=== PATIENT | male | born 1985 | race Caucasian/White ===

== ENCOUNTER → 2018-09-29 08:25 | Outpatient (CLI) | payer MEDICAID, SELFPAY ==
[2018-09-29 07:58] VITALS: BMI 26.2
[2018-09-29 12:25] LABS: Absolute Lymphocyte Count 1.69 X10^3/uL (0.83-4.51); Basophil# 0.09 X10^3/uL; Basophil% 1.3 % (0-1); Eosinophil# 0.24 X10^3/uL; Eosinophils% 3.5 % (0-5); Hematocrit 46.8 % (40-54); Hemoglobin 15.9 g/dL (13.0-16.5); Lymphocyte # 1.69 X10^3/ul (4.0); Mean Corpuscular Hgb 30.6 pg (27.0-32.0); Mean Platelet Vol. 10.4 fl (6.2-12.0); Monocyte# 0.75 X10^3/uL; Monocyte% 11.1 % (0-10); NRBC Flagged by Analyzer 0 % (0-5); Neutrophil # 3.98 X10^3/uL (2.7-7.7); Neutrophil % 58.8 % (47-70); Platelet Count 261 K/mm3 (150-450); RBC Distribution Width CV 12.4 % (11.6-14.6); RBC Distribution Width SD 40.6 fl (35.1-43.9); White Blood Count 6.8 K/mm3 (4.4-11.0)
[2018-09-29 12:38] LABS: AST(SGOT) 13 U/L (15-37); Alanine Aminotransfer ALT/SGPT 24 U/L (16-61); Albumin, Serum 3.8 g/dL (3.2-5.0); Alkaline Phosphatase 135 U/L (45-117); Anion Gap 5 (5-15); BUN 16 mg/dL (7-18); BUN/Creat Ratio 18.9 RATIO (10-20); Calcium,Total 9.2 mg/dL (8.5-10.1); Chloride 102 mmol/L (98-107); Cholesterol 136 mg/dL (200); Creatinine, Serum 0.85 mg/dL (0.70-1.30); EST Glomerular Filtration Rate 111 mL/min (>60); Est Glom Filt Rate - Afr Amer 135 mL/min (>60); Globulin 3.8 g/dL (2.2-4.2); Glucose 294 mg/dL (74-106); High Density Lipoprotein 58 mg/dL; Potassium 4.5 mmol/L (3.5-5.1); Protein, Total 7.6 g/dL (6.4-8.2); Sodium Level 135 mmol/L (136-145); Triglycerides 80 mg/dL; Very Low Density Lipoprotein 16 mg/dL (5-40)
[2018-09-29 12:51] LABS: Microalbumin,Random Urine 86.9 mg/L (NO RANGE EST.); Microalbumin:Creatinine Ratio 156.9 mg/g CRE (<30 mg/g CRE)
== END ==
PROVIDERS: Visit Provider Internal Medicine
DX: E10.9 Type 1 diabetes mellitus without complications (principal)
CPT/HCPCS: 36415; 80053; 80061; 82043; 82570; 85025

== ENCOUNTER → 2023-02-07 | Outpatient (CLI) | payer MEDICAID, SELFPAY ==
--- NOTE | 2023-02-07 12:58 | CT_ITS ---
STUDY: CT CHEST WITH CONTRAST REASON FOR EXAM: Male, 38 years old. Chest pain- LIMITED CHEST OVER-READ ONLY RADIATION DOSAGE (If Supplied By Facility): CTDIvol = ( 29.86 ) mGy, DLP = ( 1045.60 ) mGycm TECHNIQUE: Transaxial imaging was performed following intravenous administration of IV 55mL Isovue-[id number]. Individualized dose optimization techniques were used for this CT. COMPARISON: No relevant priors. FINDINGS: CHEST The lungs are normal. There is no demonstrated pleural abnormality. Normal heart and pericardium. Small benign-appearing mediastinal lymph nodes. Normal hilar regions. Normal unenhanced pulmonary arteries. Normal aorta arch and descending thoracic aorta. Normal osseous structures. Small hiatal hernia. CT/Limited Chest CT Cardiac Only IMPRESSION: Normal enhanced CT chest. Electronically Signed: Nicholas Solares MD at 14:34 EST ,
[2023-02-07 13:01] VITALS: BP 180/91; PULSE 72; RESP 18; TEMP 36.7; O2SAT 99; BMI 30.3
[2023-02-07] MEDS: 0.9% Saline Lock 10 ML Syringe IV (13:14)
[2023-02-07 13:33] LABS: CREATININE FINGERSTICK 1.2 mg/dL (0.70-1.30); EGFR FINGERSTICK > 60.0000 mL/min (>60)
[2023-02-07 13:35] VITALS: BP 132/74; PULSE 80
[2023-02-07] MEDS: Nitroglycerin SL (ED/IMG/CATH) 0.4 MG TABLET SL (13:35)
[2023-02-07 13:36] VITALS: BP 132/74; PULSE 77
--- NOTE | 2023-02-07 15:09 | CCTA.WCONT ---
CCTA w/Cont Coronary Arteries Date of Study:: 02/07/23 Chest pain Coronary Calcium Scoring: High-resolution Computed Tomographic imaging of the chest was performed on [02/07/23 ], with particular attention paid to the coronary arteries. Intravenous contrast agent was administered per protocol and images reconstructed and displayed. LEFT MAIN CORONARY ARTERY: Arises from the left coronary cusp and is noted to be normal [] LEFT ANTERIOR DESCENDING CORONARY ARTERY: Arising from the left main coronary artery with no significant atherosclerotic disease [] LEFT CIRCUMFLEX CORONARY ARTERY: Nondominant vessel with no significant atherosclerotic cardiovascular disease noted [] RIGHT CORONARY ARTERY: Dominant vessel with no significant stenosis present [] CORONARY CALCIUM SCORE: Not done Coronary CT angiogram with no significant obstructive atherosclerotic disease noted. []
== END | disposition home or self-care (01) ==
PROVIDERS: PCP Registered Nurse; Referring Provider Nurse Practitioner Family; Visit Provider Nurse Practitioner Family
DX: R07.9 Chest pain, unspecified (principal); E10.40 Type 1 diabetes mellitus with diabetic neuropathy, unspecified
CPT/HCPCS: 75574; 76380; Q9967